=== PATIENT | male | born 1950 | race Caucasian/White ===

== ENCOUNTER 2017-03-07 19:29 | Emergency (ER) | payer BC, MEDICARE ==
[~2017-03-07 19:29] MED LIST: ALDACTONE50 MG PO; AMLODIPINE BESY10 MG PO; ASPIR 8181 MG PO; BASAGLAR INSULIN SQ; CLONIDINE HCL0.2 MG PO; COZAAR100 MG PO; CRESTOR20 MG PO; DEPAKOTE500 MG PO; FENOFIBRATE134 MG PO; HYDRALAZINE HCL50 MG PO; LANTUS100 UNIT/2 SQ; METFORMIN HCL500 M3 PO; METOPROLOL SUCC25 MG PO; METOPROLOL SUCC50 MG PO; TRADJENTA5 MG PO; Z DIVALPROEX SOD PO; Z.0.ATENOLOL100 MG PO; Z.0.LISINOPRIL40 MG PO; Z.0.TEGRETOL200 MG PO; [UNRECOGNIZED DRUG - CODE] PO
== END 2017-03-07 19:30 | disposition left against medical advice (07) ==
LOC: ER 19:29
DX: R42 Dizziness and giddiness (principal)

== ENCOUNTER → 2021-11-02 | Outpatient (CLI) | payer BC ==
[~2021-11-02] MED LIST changes: +IOPAMIDOL 370 MG/ML 100 ML INFUS..BTL INJ ONE; +LATANOPROST2.5 ML OP; +METOPROLOL TAR100 MG PO; +PLAVIX75 MG PO; +SODIUM CHLORIDE 0.9% 100 ML ONE; +SODIUM CHLORIDE 0.9% 500ML 500 ML ONE; +TRIAMTERENE-HC1 EAC2 PO
[2021-11-02 09:54] LABS: CREATININE, SERUM 1.47 mg/dL (0.72-1.25)
== END ==
LOC: CT 08:41
PROVIDERS: ATTEND Internal Medicine Cardiovascular Disease
DX: I65.22 Occlusion and stenosis of left carotid artery (principal)
CPT/HCPCS: 36415; 70498; 82565; 84520; 96360; J7040; J7050; Q9967

== ENCOUNTER 2021-11-10 07:37 | Inpatient (IN) | payer BC, MEDICARE ==
[2021-11-08 09:59] LABS: BASOPHILS % 0.8 % (0.0-1.0); EOSINOPHILS # (AUTO) 0.2 (0.0-0.4); HEMATOCRIT 41.2 % (38.2-49.6); HEMOGLOBIN 13.3 g/dL (14.0-18.0); LYMPHOCYTES # (AUTO) 1.4 (1.0-3.2); LYMPHOCYTES % 30.3 % (18.0-39.1); MEAN CORPUSCULAR HGB CONC 32.3 g/dL (31-35); MONOCYTES # (AUTO) 0.4 (0.2-0.8); MONOCYTES % 7.8 % (4.4-11.3); NEUTROPHILS # (AUTO) 2.7 (2.1-6.9); NEUTROPHILS % 56.9 % (38.7-80.0); PLATELET COUNT 180 x10e3/uL (140-360); RED BLOOD COUNT 4.29 x10e6/uL (4.3-5.7); RED CELL DISTRIBUTION WIDTH 12.5 % (11.7-14.4)
[2021-11-08 10:25] LABS: ANION GAP 18.1 mmol/L (8-16); BLOOD UREA NITROGEN 31 mg/dL (7-26); BUN/CREATININE RATIO 18 (6-25); CALCIUM 9.3 mg/dL (8.4-10.2); CARBON DIOXIDE 24 mmol/L (22-29); CHLORIDE 100 mmol/L (98-107); CREATININE, SERUM 1.68 mg/dL (0.72-1.25); GLUCOSE 368 mg/dL (74-118); POTASSIUM 5.1 mmol/L (3.5-5.1); SODIUM 137 mmol/L (136-145)
[2021-11-08 10:27] LABS: INR 0.94; PROTHROMBIN TIME 13.4 seconds (11.9-14.5)
[2021-11-08 10:28] LABS: PARTIAL THROMBOPLASTIN TIME 29.5 seconds (23.8-35.5)
[2021-11-10] VITALS (34 sets, daily range): BP systolic 78–161; BP diastolic 37–84
[~2021-11-10] VITALS: Ht 160 cm; Wt 83.5 kg
[~2021-11-10 07:37] MED LIST changes: -IOPAMIDOL 370 MG/ML 100 ML INFUS..BTL INJ ONE; -SODIUM CHLORIDE 0.9% 100 ML ONE; -SODIUM CHLORIDE 0.9% 500ML 500 ML ONE
[2021-11-10] MEDS ORDERED: PROTAMINE SULFATE 10 MG/ML 5 ML VIAL ONE (08:03)
[2021-11-10] MEDS ORDERED: LIDOCAINE HCL 1% 2 ML AMP ONE (08:03)
[2021-11-10] MEDS ORDERED: HEPARIN SOD (PORCINE) 1000 UNIT/ML 30ML ONE (08:03)
[2021-11-10] MEDS ORDERED: SODIUM CHLORIDE 0.9% 100 ML ONE (08:04)
[2021-11-10] MEDS ORDERED: MUPIROCIN 2% OINT 22 GM TUBE ONE (08:04)
[2021-11-10] MEDS ORDERED: SODIUM CHLORIDE 0.9% 500ML 500 ML ONE (08:04)
[2021-11-10] MEDS ORDERED: THROMBIN FOR SOLN 5,000 UNIT VIAL ONE (08:46)
[2021-11-10] MEDS ORDERED: PHENYLEPHRINE HCL 1% 10 MG/ML VIAL ONE (08:51)
[2021-11-10] MEDS ORDERED: NITROGLYCERIN/D5W 200 MCG/ML 250 ML ONE (08:51)
[2021-11-10] MEDS ORDERED: ESMOLOL HCL 100MG/10ML 10 MG/ML VIAL ONE (08:57)
[2021-11-10] MEDS ORDERED: HYDRALAZINE HCL 20 MG/ML VIAL ONE (11:57)
[2021-11-10] MEDS ORDERED: DEXTROSE 50% SYRINGE 50 ML IV PRN (13:00)
[2021-11-10] MEDS ORDERED: ONDANSETRON HCL INJ 2MG/ML 2ML 2 MG/ML VIAL IV PRN (13:00)
[2021-11-10] MEDS ORDERED: HYDROCODONE/APAP 5MG-325MG TAB PO PRN ×2 (13:00)
[2021-11-10] MEDS ORDERED: Morphine 2mg Syringe 2 MG/ML SYR IV PRN (13:00)
[2021-11-10] MEDS ORDERED: LABETALOL HCL 5 MG/ML 20ML VIAL IV PRN (13:00)
[2021-11-10] MEDS ORDERED: Morphine 4mg INJECTION 4 MG/ML INJ IV PRN (13:00)
[2021-11-10] MEDS ORDERED: ONDANSETRON HCL 4 MG ORAL DISINTEGRATING TAB PO PRN (14:15)
[2021-11-10] MEDS: SODIUM CHLORIDE 0.9% 1000ML 1,000 ML IV SCH (15:39)
[2021-11-10] MEDS ORDERED: FENTANYL CITRATE/PF 100MCG/2 ML INJ ONE (16:55)
[2021-11-10] MEDS ORDERED: MIDAZOLAM HCL 2 MG/2 ML VIAL ONE (16:55)
[2021-11-10] MEDS: INSULIN REGULAR, HUMAN 100 UNIT/1 ML SQ SCH ×2 (16:59→23:53)
[2021-11-10] MEDS: CARBAMAZEPINE 200 MG TAB PO SCH (17:17)
[2021-11-10] MEDS ORDERED: DIVALPROEX SODIUM 250 MG TAB...DR PO SCH (21:00)
[2021-11-11] VITALS (22 sets, daily range): BP systolic 110–176; BP diastolic 39–70
[2021-11-11] MEDS: SODIUM CHLORIDE 0.9% 1000ML 1,000 ML IV SCH
[2021-11-11 06:00] LABS: BASOPHILS % 0.4 % (0.0-1.0); EOSINOPHILS # (AUTO) 0.1 (0.0-0.4); EOSINOPHILS % 0.7 % (0.0-6.0); HEMATOCRIT 36.8 % (38.2-49.6); HEMOGLOBIN 12.2 g/dL (14.0-18.0); LYMPHOCYTES # (AUTO) 1.6 (1.0-3.2); LYMPHOCYTES % 19.9 % (18.0-39.1); MEAN CORPUSCULAR HEMOGLOBIN 30.6 pg (28-32); MEAN CORPUSCULAR HGB CONC 33.2 g/dL (31-35); MEAN CORPUSCULAR VOLUME 92.2 fL (81-99); MONOCYTES # (AUTO) 0.8 (0.2-0.8); MONOCYTES % 9.1 % (4.4-11.3); NEUTROPHILS # (AUTO) 5.8 (2.1-6.9); NEUTROPHILS % 69.7 % (38.7-80.0); PLATELET COUNT 182 x10e3/uL (140-360); RED BLOOD COUNT 3.99 x10e6/uL (4.3-5.7); RED CELL DISTRIBUTION WIDTH 13.2 % (11.7-14.4)
[2021-11-11 06:19] LABS: CALCIUM 8.5 mg/dL (8.4-10.2); CREATININE, SERUM 1.08 mg/dL (0.72-1.25)
[2021-11-11] MEDS: INSULIN REGULAR, HUMAN 100 UNIT/1 ML SQ SCH ×2 (06:36→11:19)
[2021-11-11] MEDS: CARBAMAZEPINE 200 MG TAB PO SCH (08:02)
[2021-11-11 08:36] LABS: INR 0.95; PROTHROMBIN TIME 13.6 seconds (11.9-14.5)
[2021-11-11] MEDS ORDERED: ENOXAPARIN SOD INJ 40 MG/0.4 ML SYR SC SCH (09:00)
[2021-11-11] MEDS ORDERED: GLYCOPYRROLATE INJ 0.2 MG/ML VIAL IV ONE (17:28)
[2021-11-11] MEDS ORDERED: EPHEDRINE SULFATE INJ 50 MG/ML VIAL IV ONE (17:28)
[2021-11-11] MEDS ORDERED: ONDANSETRON HCL INJ 2MG/ML 2ML 2 MG/ML VIAL IV ONE (17:28)
[2021-11-11] MEDS ORDERED: LIDOCAINE HCL 2% JELLY 5 ML TUBE TOP ONE (17:28)
[2021-11-11] MEDS ORDERED: PROPOFOL IV EMULSION 10 MG/ML 20 ML VIAL IV ONE (17:28)
[2021-11-11] MEDS ORDERED: ROCURONIUM BROMIDE 10 MG/ML 5ML VIAL IV ONE (17:28)
[2021-11-11] MEDS ORDERED: DEXAMETHASONE SOD PHOS INJ 4 MG/ML SDV IV ONE (17:28)
[2021-11-11] MEDS ORDERED: POVIDONE IODINE 0.05% 0.05 % ML PO ONE (17:28)
[2021-11-11] MEDS ORDERED: DESFLURANE 240 ML BTL INH ONE (17:28)
[2021-11-11] MEDS ORDERED: LIDOCAINE HCL 2% LOCAL INJ 5 ML SDV VIAL INJ ONE (17:28)
== END 2021-11-11 17:29 | disposition home or self-care (01) | DRG 39 ==
LOC: OR 07:37 → PACU V 11:56 → ICU 12:28
PROVIDERS: ADMIT Thoracic Surgery (Cardiothoracic Vascular Surgery); ATTEND Thoracic Surgery (Cardiothoracic Vascular Surgery)
PROC: 03UL0JZ Supplement Left Internal Carotid Artery with Synthetic Substitute, Open Approach (ICD-10-PCS; 2021-11-10)
PROC: 03CL0ZZ Extirpation of Matter from Left Internal Carotid Artery, Open Approach (ICD-10-PCS; principal; 2021-11-10 09:21)
DX: I65.22 Occlusion and stenosis of left carotid artery (principal); E11.9 Type 2 diabetes mellitus without complications; Z79.4 Long term (current) use of insulin; I49.3 Ventricular premature depolarization; G47.33 Obstructive sleep apnea (adult) (pediatric); G40.909 Epilepsy, unspecified, not intractable, without status epilepticus; I25.10 Atherosclerotic heart disease of native coronary artery without angina pectoris; Z95.1 Presence of aortocoronary bypass graft; E11.51 Type 2 diabetes mellitus with diabetic peripheral angiopathy without gangrene; E11.69 Type 2 diabetes mellitus with other specified complication; E78.5 Hyperlipidemia, unspecified; Z20.822 Contact with and (suspected) exposure to COVID-19
CPT/HCPCS: 0223U; 36415; 71046; 80048; 82948; 85025; 85610; 85730; 86850; 86900; 86920; 88304; 88311; 93005; 94799; 96361; 96372; C1768; J0360; J0690; J1100; J1644; J1650; J1817; J2001; J2250; J2370; J2405; J2720; J3010; J7030; J7040; J7050